=== PATIENT | female | born 1990 | race Caucasian/White ===

== ENCOUNTER → 2016-07-06 | Day surgery (SDC) | payer BC, OTHER ==
[~2016-07-06] MED LIST: BIRTH CONTROL
--- NOTE | ~2016-07-06 | OR ---
Unit #: [id number] #: [id number] Patient: HAVEN LEE [id number] [address] [place], [place] [address] [id number] MR#: [id number] NAME: HAVEN LEE ROOM: Date of Procedure: 07/06/2016 Admission Date: 07/06/2016 Surgeon: Jalen Ferrell M.D. : 1990 Attending Physician: Jalen Ferrell M.D. Primary Care Physician: Fortunato Alaniz M.D. OPERATIVE REPORT PREOPERATIVE DIAGNOSES Chronic cholecystitis with cholelithiasis. POSTOPERATIVE DIAGNOSES Chronic cholecystitis with cholelithiasis. PROCEDURE PERFORMED Laparoscopic cholecystectomy ANESTHESIA General endotracheal anesthesia. ESTIMATED BLOOD LOSS Less than 10 mL. INDICATIONS FOR PROCEDURE A 25-year-old female, who has had previous pregnancies presented with postprandial nausea and right upper quadrant pain. Ultrasound revealed cholelithiasis with a normal biliary ductal system. Preoperative liver chemistries were unremarkable. DESCRIPTION OF PROCEDURE The patient was admitted to [facility], positively identified, and transported to the operating room, and after induction of general endotracheal anesthesia, she was prepped and draped in usual sterile fashion. A 5-mm infraumbilical incision made. Veress needle was placed. Pneumoperitoneum was created. Then, a 5-mm trocar was placed. Laparoscope was introduced into peritoneal cavity under direct vision. The epigastric and lateral ports were placed. Gallbladder was grasped and elevated. Adhesions were stripped away and the infundibulum was identified and retracted laterally. [place] was dissected out identifying the cystic duct, gallbladder, and cystic duct-common duct junction and the posteriorly placed cystic artery. Once it was dissected out, the liver could clearly be seen behind the 2 structures in the triangle of [place]. The cystic duct was swept upwards and a single clip was placed in the cystic duct centered to gallbladder and 3 clips were then placed distally and the cystic duct was sharply divided. Posteriorly, the cystic artery was doubly clipped proximally and distally and divided. I then dissected the gallbladder liver bed using cautery dissection and once this freed up from its hepatic attachments, it was brought out through the epigastric port. There was no spillage of bile or stones. There was good hemostasis. The clips were well positioned. The Unit #: [id number] #: [id number] Patient: HAVEN LEE epigastric fascial defect was closed with a neoClose device and the closure was airtight. There was no bleeding. I then reduced the pneumoperitoneum and I removed the laparoscope and trocars. A 0.5% Marcaine with epinephrine was infiltrated in the trocar site. The skin was closed with 4-0 Monocryl subcuticular closure and Dermabond skin adhesive. Sponges and needle counts were correct x3. The patient tolerated the procedure well and was transported to the recovery in stable condition. Findings and postoperative instructions were discussed with her . Dictated by... Jud Moore/maria teresa TD: 07/07/2016 01:45 JOB #: [id number] OPERATIVE REPORT X Jalen Ferrell MD X PROCEDURE OPERATIVE NOTE
[2016-07-06 06:59] LABS: BASOPHIL% 0.7 % (0-2.5); EOSINOPHIL# 0.2 X10e3 (0-0.7); EOSINOPHIL% 2.8 % (0.0-7.0); HEMATOCRIT 40.1 % (35.0-45.0); HEMOGLOBIN 13.4 gm/dL (12.0-16.0); LYMPHOCYTE# 2.5 X10e3 (1.0-3.5); LYMPHOCYTE% 34.4 % (17.0-45.0); MEAN CELL VOLUME 81.5 FL (83-96); MEAN CORPUSCULAR HEMOGLOBIN 27.3 PG (28-34); MEAN CORPUSCULAR HGB CONC 33.5 g/dL (30-36); MEAN PLATELET VOLUME 9.7 FL (6.5-11.5); MONOCYTE# 0.6 X10e3 (0-1.0); MONOCYTE% 8.4 % (3.0-12.0); NEUTROPHIL# 3.9 X10e3 (1.5-7.1); NEUTROPHIL% 53.7 % (40-75); PLATELET COUNT 280 X10e3 (140-420); RED BLOOD COUNT 4.93 X10e (3.90-5.30); RED CELL DISTRIBUTION WIDTH 12.1 % (11.0-15.5); WHITE BLOOD COUNT 7.2 X10e3 (4.0-10.5)
[2016-07-06 07:02] LABS: DIFF IND NO
[2016-07-06 07:24] LABS: ALBUMIN SERUM 3.9 g/dL (3.5-5.0); ALKALINE PHOSPHATASE 54 U/L (32-92); ALT (SGPT) 28 U/L (10-40); AST (SGOT) 21 U/L (10-42); BILIRUBIN,TOTAL 0.4 mg/dL (0.2-2.0); BLOOD UREA NITROGEN 8 mg/dL (9-23); CALCIUM SERUM 8.7 mg/dL (8.4-10.2); CARBON DIOXIDE 27 mmol/L (22-31); CHLORIDE 104 mmol/L (100-111); CREATININE SERUM 0.4 mg/dL (0.6-1.4); GLOM FILT RATE Estimated ABOVE60 mL/min (>60); GLUCOSE FASTING 100 mg/dL (70-110); POTASSIUM 3.9 mmol/L (3.5-5.1); SODIUM 137 mmol/L (135-145)
== END | disposition home or self-care (01) ==
LOC: CSUR 06:17
PROVIDERS: Specialist
DX: K80.10 Calculus of gallbladder with chronic cholecystitis without obstruction (principal); Z79.899 Other long term (current) drug therapy
CPT/HCPCS: 80053; 84703; 85025; 88304; J0131; J0330; J0690; J1100; J1170; J1885; J2250; J2405; J2710; J3010